=== PATIENT | female | born 1960 | race Caucasian/White ===

== ENCOUNTER 2024-07-22 03:42 | Inpatient (IN) | payer OTHER, SELFPAY ==
[2024-07-22] VITALS (44 sets, daily range): BP systolic 105–132; BP diastolic 49–79; PULSE 93–140; RESP 16–28; TEMP 37.2–39.2; O2SAT 80–96; BMI 32.5
--- NOTE | 2024-07-22 04:00 | CRLHL7_ITS ---
For Patients: As a result of the Century Cures Act, medical imaging exams and procedure reports are released immediately into your electronic medical record. You may view this report before your referring provider. If you have questions, please contact your health care provider. INDICATION: Cough COMPARISON: October 03, 2009 TECHNIQUE: PA and lateral views of the chest were acquired FINDINGS: TUBES AND LINES: None. HEART AND MEDIASTINUM: The heart size is normal. The mediastinal contour appears normal for patient age. LUNGS AND PLEURAL SPACES: The lungs appear normal.The pleural spaces are unremarkable. OSSEOUS STRUCTURES: Age-appropriate appearance. No acute focal finding. IMPRESSION: No evidence of active pulmonary disease. Dictated by Sivakumar Palma MD @ 07/22/2024 4:46:32 AM (Electronically Signed)
--- NOTE | 2024-07-22 04:02 | ED.FEVER ---
HPI - Fever General Date Seen: 07/22/24 Chief Complaint: Fever Stated Complaint: chest congestion/fever Time Seen by Provider: 07/22/24 03:52 Source: patient and family Mode of arrival: ambulatory Limitations: no limitations History of Present Illness HPI Narrative: Patient is a 63-year-old female presents here with her significant other with a history of a fever, aches, mild sore throat and a cough for the last 36 hours. She is taking Tylenol, took 1 g at approximately midnight. Slight headache associated with this but no neck stiffness, she also vomited once yesterday, and does feel nauseous. She did not get the flu shot this year. Her is not sick, denies any diarrhea, abdominal pain dysuria frequency, she has not have a productive cough. History of previous bronchitis, history of depression. MD elicited complaint: fever Context: sick contacts Exacerbating factors: at night Relieving factors: acetaminophen Associated symptoms: chills, rigors, myalgias, headache, nasal congestion, nausea and night sweats Treatments prior to arrival fever: acetaminophen Related Data Home Medications ?Medication ?Instructions ?Recorded ?Confirmed sertraline 50 mg tablet 50 mg PO DAILY 07/04/23 07/08/23 Previous Rx's ?Medication ?Instructions ?Recorded benzonatate 200 mg capsule 200 mg PO BID-TID PRN cough #30 07/04/23 caps azithromycin 250 mg tablet See Rx Instructions PO .COMPLEX #6 07/08/23 tabs oseltamivir 75 mg capsule (Tamiflu) 75 mg PO BID 5 days #10 caps 07/22/24 Allergies Allergy/AdvReac Type Severity Reaction Status Date / Time Unable to Assess Allergy Verified 07/08/23 09:01 Review of Systems Status of ROS Reports: 10 or more systems reviewed and unremarkable except as noted in History and below Exam Narrative Exam Narrative: On examination in room 5, she is alert oriented x3 with a GCS of 15/15, pupils equal round reactive to light there is no scleral icterus redness, TMs are normal she has no nystagmus cranial nerves 3-12 are normal, his throat is slightly reddened. But no tonsillar enlargement or asymmetry is noted, there is no lymphadenopathy anterior posterior chains her neck is supple, and no meningismus is elicited, chest is good air entry bilaterally, she does cough when she takes a deep breath in but I do not hear any crackles, heart sounds are normal no clicks murmurs or gallops her abdomen is soft no organomegaly, she there is no guarding, skin reveals no petechiae rashes she moves all extremities independently and well, is in neurologically intact. She is febrile here at 1:02 a.m. 0.5 with a pulse rate of 140, s Const Vital Signs, click to edit/add: Vital Signs - 24 hr 07/22/24 03:47 Temperature 102.5 F H Pulse Rate [Left Pulse Oximeter] 140 H Respiratory Rate 20 Blood Pressure [Right Upper Arm] 132/79 Pulse Oximetry 93 Oxygen Delivery Method Room Air Documenting provider has reviewed patient's vital signs: yes Course Reevaluation(s) Time of Reevaluation #1: 05:22 Reevaluation #1: Patient is feeling better, not great but better. I went over her laboratory tests she is positive for influenza a, her chest x-ray was negative. I think at the present time we can send her home, with use of the Tamiflu and rest. Note for work given Vital Signs Vital signs: Initial Vital Signs Temperature 102.5 F H 07/22/24 03:47 Temperature Source Temporal Artery Scan 07/22/24 03:47 Pulse Rate 140 H 07/22/24 03:47 Pulse Rhythm Regular 07/22/24 03:47 Respiratory Rate 20 07/22/24 03:47 Blood Pressure 132/79 07/22/24 03:47 Blood Pressure Mean 96 07/22/24 03:47 Blood Pressure Position Sitting 07/22/24 03:47 Pulse Oximetry 93 07/22/24 03:47 Oxygen Delivery Method Room Air 07/22/24 03:47 Vital Signs Temperature 102.5 F H 07/22/24 03:47 Pulse Rate 140 H 07/22/24 03:47 Respiratory Rate 20 07/22/24 03:47 Blood Pressure 132/79 07/22/24 03:47 Pulse Oximetry 93 07/22/24 03:47 Oxygen Delivery Method Room Air 07/22/24 03:47 Temperature 102.5 F H 07/22/24 03:47 Pulse Rate 140 H 07/22/24 03:47 Respiratory Rate 20 07/22/24 03:47 Blood Pressure 132/79 07/22/24 03:47 Pulse Oximetry 93 07/22/24 03:47 Oxygen Delivery Method Room Air 07/22/24 03:47 Medications Administered Medications: Discontinued Medications Generic Name Dose Route Start Last Admin Trade Name Freq PRN Reason Stop Dose Admin Sodium Chloride 1,000 mls @ 1,000 mls/hr 07/22/24 04:00 07/22/24 04:14 0.9 % Sodium Chloride 1000 Ml IV 07/22/24 04:59 1,000 mls/hr .Q1H JOSIANE Administration Ketorolac Tromethamine 30 mg 07/22/24 04:00 07/22/24 04:13 Ketorolac 30 Mg/Ml Inj IVP 07/22/24 04:01 30 mg ONCE ONE Administration Ondansetron HCl 4 mg 07/22/24 04:00 07/22/24 04:13 Ondansetron 2 Mg/Ml Inj IVP 07/22/24 04:01 4 mg ONCE ONE Administration MDM - Fever MDM Narrative Medical decision making narrative: Life-threatening differential diagnosis is include meningitis, encephalitis, pneumonia, intra-abdominal infection, bacteremia, other differential diagnosis include but are not limited to viral upper respiratory tract infection, strep, urinary tract infection, skin infection, osteomyelitis, influenza, fungal infections, diskitis, epidural abscess, or fever of unknown origin. I suspect that this is influenza but given her tachycardia, I think it would be reasonable to do do a more thorough workup, such as laboratory work IV fluids, chest x-ray. Differential Diagnosis Differential diagnosis: Likely cellulitis, fever of unknown origin, gastroenteritis, community acquired pneumonia, pyelonephritis, viral infection, sepsis and influenza Medical Records Attestation: I reviewed the patient's medical records. Lab Data Attestation: I reviewed the patient's lab results. Labs: Lab Results 07/22/24 07/22/24 Range/Units 03:51 04:15 WBC 5.05 (4.50-11.00) K/uL RBC 4.68 (4.00-5.20) m/uL Hgb 13.6 (12.0-16.0) gm/dL Hct 42.0 (33.0-51.0) % MCV 90 (80-100) fL MCH 29 (26-34) pg MCHC 32 (32-36) gm/dL RDW Coeff of Leobardo 13.7 (11.5-15.5) % Plt Count 160 (140-440) K/uL Neut % (Auto) 78.2 H (42.0-72.0) % Lymph % (Auto) 10.9 L (20-44) % [place] % (Auto) 8.7 (0.0-11.0) % Eos % (Auto) 0.8 (0.0-7.0) % Baso % (Auto) 0.6 (0.0-3.0) % Neut # (Auto) 3.90 (1.7-7.0) K/uL Lymph # (Auto) 0.60 L (0.90-2.90) K/uL [place] # (Auto) 0.40 (0.00-0.90) K/UL Eos # (Auto) 0.04 (0.00-0.50) K/uL Baso # (Auto) 0.03 (0.00-0.30) K/uL Abs Immat Gran (auto) 0.04 (0.00-0.30) K/uL Imm/Tot Granulo (auto) 0.8 % Sodium 135 (135-149) mmol/L Potassium 3.8 (3.6-5.1) mmol/L Chloride 104 (96-114) mmol/L Carbon Dioxide 24 (20-32) mmol/L Anion Gap 7 (7-15) mEq/L BUN 14 (7-30) mg/dL Creatinine 0.7 (0.5-1.5) mg/dL Estimated Creat Clear 51.81 Estimated GFR 97 ml/min Glucose 131 H (60-115) mg/dL Lactate 1.5 (0.5-1.9) mmol/L Calcium 9.0 (8.4-10.6) mg/dL C-Reactive Protein 1.0 (0.5-1.0) mg/dL Procalcitonin 0.07 (<0.50) ng/mL SARS-CoV-2 (PCR) Negative SARS-CoV-2 Cancelled (Negative) Influenza Type A (PCR) POSITIVE PCR FLU A A Cancelled (Negative) Influenza Type B (PCR) Negative PCR FLU B Cancelled (Negative) RSV (PCR) Negative PCR RSV Cancelled (Negative) Imaging Data Chest x-ray: Attestation: I have reviewed the pertinent imaging results. My impression: Negative acute Radiologist's impression: [address] [address] Diagnostic Imaging Report Patient: Honey Bolaños MR#: [id number] : 1960 Acct:[id number] Loc: ED Service Date: 07/22/[address]: Ordering Physician: Stevenson Tracy M.D. Date of Service: 07/22/24 Procedure(s): XR chest 2V Accession Number(s): [id number] cc: Whitley Marcelino M.D.; Stevenson Tracy M.D.~ For Patients: As a result of the Cures Act, medical imaging exams and procedure reports are released immediately into your electronic medical record. You may view this report before your referring provider. If you have questions, please contact your health care provider. INDICATION: Cough COMPARISON: October 03, 2009 TECHNIQUE: PA and lateral views of the chest were acquired FINDINGS: TUBES AND LINES: None. HEART AND MEDIASTINUM: The heart size is normal. The mediastinal contour appears normal for patient age. LUNGS AND PLEURAL SPACES: The lungs appear normal.The pleural spaces are unremarkable. OSSEOUS STRUCTURES: Age-appropriate appearance. No acute focal finding. IMPRESSION: No evidence of active pulmonary disease. Dictated by Sivakumar Palma MD @ 07/22/2024 4:46:32 AM (Electronically Signed) Discharge Plan Discharge Clinical Impression: Influenza Patient Disposition: Home w/ Parent or Adult Condition: Improved Instructions: Influenza (DC) Additional Instructions: Home rest fluid, I did prescribe Tamiflu for you. See how it goes you should still also take acetaminophen 1 g p.o. t.i.d.. You can supplement this with ibuprofen but I would start with a acetaminophen 1st. Your very contagious, make sure you warn everyone about this. People run to problems with influenza if they are doing okay then they take a turn for the worse and they usually have a secondary infection. Prescription via instymeds Activity Level: Light activity Discharge Diet: Regular Prescriptions: New oseltamivir [Tamiflu] 75 mg capsule 75 mg PO BID 5 Days Qty: 10 0RF No Action sertraline 50 mg tablet 50 mg PO DAILY benzonatate 200 mg capsule 200 mg PO BID-TID PRN (Reason: cough) Qty: 30 0RF azithromycin 250 mg tablet See Rx Instructions PO .COMPLEX Qty: 6 0RF Rx Instructions: For 250 mg dose pack: take 500 mg today (day 1), then 250 mg for 4 days (days 2-5) PO Follow Up/Referrals: Whitley Marcelino MD [Primary Care Provider] - Stand Alone Forms: [employer] Info Instructions
[2024-07-22] MEDS: KETOROLAC 30 MG/ML inj IVP (04:13)
[2024-07-22] MEDS: ONDANSETRON 2 MG/ML inj 4 MG IVP (04:13)
[2024-07-22] MEDS: 0.9 % SODIUM CHLORIDE 1000 ml 1,000 ML IV ×2 (04:14→05:41)
[2024-07-22 04:25] LABS: Lactate* 1.5 mmol/L (0.5-1.9)
[2024-07-22 04:27] LABS: Basophils Absolute Auto 0.03 K/uL (0.00-0.30); Basophils Percent Auto 0.6 % (0.0-3.0); Eosinophils Absolute Auto 0.04 K/uL (0.00-0.50); Eosinophils Percent Auto 0.8 % (0.0-7.0); Hemoglobin* 13.6 gm/dL (12.0-16.0); Immature Granulocytes Abs Auto 0.04 K/uL (0.00-0.30); Immature Granulocytes Pct Auto 0.8 %; Lymphocytes Percent Auto 10.9 % (20-44); Mean Corpuscular HGB Conc 32 gm/dL (32-36); Mean Corpuscular Hemoglobin 29 pg (26-34); Mean Corpuscular Volume 90 fL (80-100); Monocytes Percent Auto 8.7 % (0.0-11.0); Neutrophils Percent Auto 78.2 % (42.0-72.0); Platelet Count* 160 K/uL (140-440); RDW Coefficient of Variation % 13.7 % (11.5-15.5); Red Blood Count 4.68 m/uL (4.00-5.20); White Blood Count* 5.05 K/uL (4.50-11.00)
[2024-07-22 04:30] LABS: Slide Review Reflex No
[2024-07-22 04:33] LABS: PCR FLU A POSITIVE PCR FLU A (Negative); PCR FLU B Negative PCR FLU B (Negative); PCR RSV Negative PCR RSV (Negative); SARS PCR* Negative SARS-CoV-2 (Negative)
[2024-07-22 04:40] LABS: Chloride* 104 mmol/L (96-114)
[2024-07-22 04:41] LABS: Potassium* 3.8 mmol/L (3.6-5.1); Sodium* 135 mmol/L (135-149)
[2024-07-22 04:43] LABS: Creatinine* 0.7 mg/dL (0.5-1.5); Est. Creatinine Clearance* 51.81; Estimated Glomerular Filt Rate 97 ml/min
[2024-07-22 04:44] LABS: Anion Gap 7 mEq/L (7-15); Blood Urea Nitrogen* 14 mg/dL (7-30); Carbon Dioxide* 24 mmol/L (20-32); Glucose* 131 mg/dL (60-115)
[2024-07-22 05:01] LABS: Procalcitonin* 0.07 ng/mL (<0.50)
[2024-07-22] MEDS: OSELTAMIVIR PHOSPHATE 75 MG CAPSULE PO ×2 (05:40→22:00)
[2024-07-22] MEDS: ACETAMINOPHEN 500 MG TABLET 1000 MG PO (05:40)
--- NOTE | 2024-07-22 05:43 | ED.NURSE ---
O2 applied to pt, 2 LPM via NC
--- NOTE | 2024-07-22 07:26 | ED.NURSE ---
pt ambulated, O2 sats dropped to 85%. At rest on room air, sats increased to 89%. Pt states the walking made her short of breath. Pt placed back on O2, NC at 2 lpm, sats increased to 93%.
[2024-07-22] MEDS: ACETAMINOPHEN 325 MG TABLET 650 MG PO (14:22)
[2024-07-22] MEDS: IBUPROFEN 200 MG TABLET 600 MG PO (18:41)
--- NOTE | 2024-07-22 20:22 | P.IMHP_ITS ---
Hospitalist- H&P: HPI History of Present Illness Date Seen: 07/22/24 Chief complaint: chest congestion/fever Narrative: ADMISSION HISTORY AND PHYSICAL - HOSPITALIST Chief Complaint: Feeling ill, febrile HPI: This is a 63-year-old WF who is otherwise healthy who was in her usual state of good health until about 2 days ago. She started having myalgias, low-grade fevers, headache, sore throat. Her symptoms progressed and in the hours prior to arrival in the ED she spiked a temp up to 102 and felt short of breath. She has no history of pulmonary disease. No sick contacts. She did not have the flu shot this year. ER screen her for influenza and she is positive for influenza A and hypoxic. She has been requiring up to 2 L per nasal cannula oxygen to keep her sats greater than 90%. She has been febrile here in the ED up to 102.4. She is tachypneic and tachycardic with any activity. ER COURSE: She has been in the ER most of the day awaiting bed placement on our floor. She has received Tylenol, ibuprofen, Tamiflu and a fluid bolus. Her chest x-ray was normal. CODE STATUS: FULL CODE EMERGENCY CONTACT PLAN: [place], Marco Rel To Pat Son I've updated the PFSH, medications and allergies in the [facility] tabs. INVESTIGATIONS: LABS/MICRO/ECG/IMAGING Consistently febrile since arrival. 102.5 is the T-max Blood pressure stable 121/60 Mildly tachycardic 104-93 Respiratory rate 16-18 but when febrile tachypneic up to 28 Pulse ox is mid 90s on 2 L CBC is unremarkable. White blood cell count 5.05. Hemoglobin 13.6. Platelet count 160. Chemistries are unremarkable. Glucose is 131. Lactate was normal this morning when she arrived. CRP and procalcitonin are not elevated. She is positive for influenza type A. Negative for COVID RSV. Chest x-ray, two view, clear. One blood culture pending REVIEW OF SYSTEMS: 12-point ROS completed with patient and negative unless otherwise stated in HPI or below. PHYSICAL EXAM: CONSTITUTIONAL: Conversive, good historian. A/O. Knows setting and context. Looks flushed and ill. GENERAL: Well-developed and above ideal body weight, in mild respiratory distress. VITAL SIGNS: see record. HEENT: Sclerae are anicteric. No petechiae. CARDIAC: rhythm is regular. There is no S3 or rub. No harsh murmurs. Extremities show trace edema with symmetrical pulses. PULM: good air entry with no wheeze. Induces cough with deep breath. NEURO: Speech is fluent. A brief neurologic exam is negative. SKIN: No rashes, petechiae, concerning changes PSYCHIATRIC: Euthymic. ADMIT TO MEDSURG: FLOOR CARE DVT: Lovenox GI: PO intake Time spent: Today I spent 75 minutes seeing the patient, discussing the patient with ER staff, reviewing Expanse and EPIC notes/diagnostics, discussing the care plan with our care time that includes social work, PT/OT, pharmacy, RT, nursing home and documenting my impressions and plan in the medical record. MEDICAL NECESSITY FOR HOSPITALIZATION Anticipated midnights in the hospital: 2 Admitting diagnosis: Influenza A Risk of morbidity and mortality: high Acuity is characterized as high and reflected in: The patient has continued to be hypoxic and febrile. She is requiring oxygen to keep her sats greater than 90%. She has tachycardic and tachypneic. Given her severe presentation and advanced age she will be admitted to inpatient services. This patient will require hospital services as outlined in the assessment and plan in order to stabilize and be safely discharged to a lower level of care. Because of the risk and acuity as described above, this patient cannot be managed at a lower level of care. LENGTH OF STAY: 2 IP ? Anticipated LOS>2 midnights due to acuity of clinical presentation requiring inpatient level of care [facility] Medical History (Updated 07/22/24 @ 20:50 by Neha Mansfield MD) Mild anxiety ?F41.9 - Anxiety disorder, unspecified (ICD-10) Surgical History (Updated 07/22/24 @ 20:49 by Neha Mansfield MD) History of vaginal hysterectomy ?Z90.710 - Acquired absence of both cervix and uterus (ICD-10) Hx of tonsillectomy ?Z90.89 - Acquired absence of other organs (ICD-10) History of abdominoplasty ?Z98.890 - Other specified postprocedural states (ICD-10) Social History Smoking Status: Never smoker How often do you have a drink containing alcohol: never How often do you have six or more drinks on one occasion: Never AUDIT-C Alcohol total score: 0 Non-prescribed substance use: denies use service: No Meds Home Medications and Allergies Home Medications ?Medication ?Instructions ?Recorded ?Confirmed ?Type sertraline 50 mg tablet 50 mg PO DAILY 07/04/23 07/22/24 History Allergies Allergy/AdvReac Type Severity Reaction Status Date / Time Unable to Assess Allergy Verified 07/08/23 09:01 Exam Const: Vital Signs, click to edit/add: Vital Signs - 24 hr 07/22/24 03:47 07/22/24 04:00 07/22/24 05:25 Temperature 102.5 F H 102.5 F H Pulse Rate Pulse Rate [Left P ulse Oximeter] 140 H 126 H Respiratory Rate 20 18 Blood Pressure Blood Pressure [Ri ght Upper Arm] 132/79 121/60 Pulse Oximetry 93 93 90 Oxygen Delivery Me thod Room Air Room Air Oxygen Flow Rate 07/22/24 05:40 07/22/24 05:42 07/22/24 05:49 Temperature 102.5 F H Pulse Rate Pulse Rate [Left P ulse Oximeter] Respiratory Rate 18 Blood Pressure Blood Pressure [Ri ght Upper Arm] Pulse Oximetry 95 93 Oxygen Delivery Me thod Nasal Cannula Nasal Cannula Oxygen Flow Rate 2 2 07/22/24 07:13 07/22/24 07:14 07/22/24 12:40 Temperature 99.3 F 99.3 F Pulse Rate 102 H Pulse Rate [Left P ulse Oximeter] 118 H Respiratory Rate 16 Blood Pressure Blood Pressure [Ri ght Upper Arm] 115/55 L Pulse Oximetry 93 95 Oxygen Delivery Me thod Nasal Cannula Oxygen Flow Rate 2 07/22/24 12:45 07/22/24 13:00 07/22/24 13:15 Temperature Pulse Rate 106 H 104 H 100 Pulse Rate [Left P ulse Oximeter] Respiratory Rate Blood Pressure Blood Pressure [Ri ght Upper Arm] Pulse Oximetry 95 94 94 Oxygen Delivery Me thod Oxygen Flow Rate 07/22/24 13:30 07/22/24 13:45 07/22/24 14:04 Temperature Pulse Rate 100 99 134 H Pulse Rate [Left P ulse Oximeter] Respiratory Rate Blood Pressure Blood Pressure [Ri ght Upper Arm] Pulse Oximetry 94 93 80 L Oxygen Delivery Me thod Oxygen Flow Rate 07/22/24 14:15 07/22/24 14:22 07/22/24 14:30 Temperature 101 F H Pulse Rate 104 H 108 H Pulse Rate [Left P ulse Oximeter] Respiratory Rate Blood Pressure Blood Pressure [Ri ght Upper Arm] Pulse Oximetry 89 85 L Oxygen Delivery Me thod Oxygen Flow Rate 07/22/24 14:45 07/22/24 15:00 07/22/24 15:15 Temperature Pulse Rate 103 H 100 99 Pulse Rate [Left P ulse Oximeter] Respiratory Rate Blood Pressure Blood Pressure [Ri ght Upper Arm] Pulse Oximetry 90 93 92 Oxygen Delivery Me thod Oxygen Flow Rate 07/22/24 15:30 07/22/24 15:31 07/22/24 15:45 Temperature Pulse Rate 102 H 100 95 Pulse Rate [Left P ulse Oximeter] Respiratory Rate Blood Pressure 116/61 Blood Pressure [Ri ght Upper Arm] Pulse Oximetry 93 92 91 Oxygen Delivery Me thod Oxygen Flow Rate 07/22/24 16:00 07/22/24 16:15 07/22/24 16:30 Temperature Pulse Rate 107 H 96 93 Pulse Rate [Left P ulse Oximeter] Respiratory Rate Blood Pressure Blood Pressure [Ri ght Upper Arm] Pulse Oximetry 92 92 92 Oxygen Delivery Me thod Oxygen Flow Rate 07/22/24 16:45 07/22/24 17:00 07/22/24 17:15 Temperature Pulse Rate 93 93 101 H Pulse Rate [Left P ulse Oximeter] Respiratory Rate Blood Pressure Blood Pressure [Ri ght Upper Arm] Pulse Oximetry 91 92 93 Oxygen Delivery Me thod Oxygen Flow Rate 07/22/24 17:30 07/22/24 17:50 07/22/24 18:00 Temperature Pulse Rate 100 103 H 104 H Pulse Rate [Left P ulse Oximeter] Respiratory Rate Blood Pressure Blood Pressure [Ri ght Upper Arm] Pulse Oximetry 92 94 95 Oxygen Delivery Me thod Oxygen Flow Rate 07/22/24 18:15 07/22/24 18:30 07/22/24 18:37 Temperature Pulse Rate 99 94 94 Pulse Rate [Left P ulse Oximeter] Respiratory Rate 28 H Blood Pressure 121/60 Blood Pressure [Ri ght Upper Arm] Pulse Oximetry 95 95 96 Oxygen Delivery Me thod Nasal Cannula Oxygen Flow Rate 2 07/22/24 18:41 07/22/24 18:45 07/22/24 19:00 Temperature 102.4 F H Pulse Rate 97 98 Pulse Rate [Left P ulse Oximeter] Respiratory Rate Blood Pressure Blood Pressure [Ri ght Upper Arm] Pulse Oximetry 96 95 Oxygen Delivery Me thod Oxygen Flow Rate 07/22/24 19:15 07/22/24 19:30 Temperature Pulse Rate 93 93 Pulse Rate [Left P ulse Oximeter] Respiratory Rate Blood Pressure Blood Pressure [Ri ght Upper Arm] Pulse Oximetry 92 91 Oxygen Delivery Me thod Oxygen Flow Rate Hospitalist - H&P: Result Labs Labs: Short CBC 07/22/24 Range/Units 04:15 WBC 5.05 (4.50-11.00) K/uL Hgb 13.6 (12.0-16.0) gm/dL Hct 42.0 (33.0-51.0) % Plt Count 160 (140-440) K/uL BMP 07/22/24 04:15 Sodium 135 Potassium 3.8 Chloride 104 Carbon Dioxide 24 BUN 14 Creatinine 0.7 Glucose 131 H Calcium 9.0 Assessment and Plan Assessment and plan (1) Hypoxic respiratory failure: Problem comment: -continue nasal cannula oxygen support. -encouraged vibratory peep and incentive spirometry Q 30 minutes while awake -consider repeating chest x-ray, two view, if continues to be hypoxic on 07/23 Status: Acute (2) Influenza A with respiratory manifestations: Problem comment: -Tamiflu 75 mg p.o. b.i.d. -fever management -watch fluids and electrolytes Status: Acute (3) Mild anxiety: Problem comment: -continue Zoloft Status: Acute
[2024-07-22] MEDS: SODIUM CHLORIDE 0.9 % (FLUSH) 10 ML SYRINGE 5 ML IVF (21:59)
[2024-07-22] MEDS: ENOXAPARIN 40 MG/0.4 ML INJ SUBCUT (21:59)
[2024-07-23] MEDS: SODIUM CHLORIDE 0.9 % (FLUSH) 10 ML SYRINGE 5 ML IVF ×2 (00:05→09:29)
[2024-07-23] MEDS: KETOROLAC 15 MG/ML inj IVP (00:05)
[2024-07-23 00:45] VITALS: PULSE 68
[2024-07-23 03:42] VITALS: BP 98/52; PULSE 68; RESP 16; TEMP 36.8; O2SAT 93
[2024-07-23 07:00] VITALS: BP 114/60; PULSE 100; PULSE 82; RESP 14; TEMP 37.1; O2SAT 93
[2024-07-23 07:07] LABS: HCO3 VBG 28 mmol/L (21-28); Lactate* 0.6 mmol/L (0.5-1.9); PCO2 VBG 53 mmHG (40-50); PO2 VBG < 30.1 mmHG (25-47); pH VBG 7.333 (7.32-7.43)
[2024-07-23 07:17] LABS: Hematocrit 36.7 % (33.0-51.0); Hemoglobin* 11.6 gm/dL (12.0-16.0); Mean Corpuscular HGB Conc 32 gm/dL (32-36); Mean Corpuscular Hemoglobin 29 pg (26-34); Mean Corpuscular Volume 91 fL (80-100); Platelet Count* 134 K/uL (140-440); Red Blood Count 4.02 m/uL (4.00-5.20)
[2024-07-23 07:19] LABS: Slide Review Reflex No
[2024-07-23 07:41] LABS: Albumin* 3.3 g/dL (3.3-5.0); Chloride* 105 mmol/L (96-114)
[2024-07-23 07:42] LABS: Potassium* 3.5 mmol/L (3.6-5.1); Sodium* 136 mmol/L (135-149)
[2024-07-23 07:44] LABS: Bilirubin Total* 0.3 mg/dL (0.1-1.5); Creatinine* 0.6 mg/dL (0.5-1.5); Est. Creatinine Clearance* 51.81; Estimated Glomerular Filt Rate 101 ml/min
[2024-07-23 07:45] LABS: Alanine Aminotransferase* 105 U/L (4-35); Alkaline Phosphatase* 46 U/L (40-150); Anion Gap 4 mEq/L (7-15); Aspartate Amino Transferase* 90 U/L (12-35); Blood Urea Nitrogen* 15 mg/dL (7-30); Calcium* 8.1 mg/dL (8.4-10.6); Carbon Dioxide* 27 mmol/L (20-32); Glucose* 98 mg/dL (60-115); Total Protein* 5.8 g/dL (6.0-8.3)
[2024-07-23 07:48] LABS: C Reactive Protein* 7.9 mg/dL (0.5-1.0)
--- NOTE | 2024-07-23 07:59 | PC.NURSE ---
Pt alert and oriented x3. Afebrile. Pt was weaned down from 1L to room air, maintaining stats of 90-93% and higher Pt reports 3-8/10 generalized/headache pain, managed with PRN medications. Pt is up SBA, voiding and tolerating a regular diet.
[2024-07-23] MEDS: SERTRALINE 50 MG TABLET PO (09:28)
[2024-07-23] MEDS: OSELTAMIVIR PHOSPHATE 75 MG CAPSULE PO (09:28)
[2024-07-23 11:00] VITALS: BP 121/50; PULSE 94; RESP 14; TEMP 38.1; O2SAT 88
[2024-07-23 11:40] VITALS: TEMP 38.1
[2024-07-23] MEDS: ACETAMINOPHEN 500 MG TABLET 1000 MG PO (11:40)
--- NOTE | 2024-07-23 12:20 | PM.DS1 ---
DS: Providers Provider Date Seen: 07/23/24 Date of admission: 07/22/24 20:26 Primary care physician: Whitley Marcelino MD Admitting Clinician: Neha Mansfield MD Consults: 07/22/24 20:26 Consult to Occupational Therapy [CONS] Routine Comment: Reason(s) for OT Consult:: Evaluate and Treat Any Restrictions?:: No Restrictions Consult to Physical Therapy [CONS] Routine Comment: Reason(s) for PT Consult:: Evaluate and Treat Any Restrictions?:: No Restrictions Consult to Respiratory Therapy [CONS] Routine Comment: Reason(s) for RT Consult:: Consult Consult to [employer] [CONS] Routine Comment: Reason for Consult:: Social Service Consult Attending Physician on discharge: Honey Vargas [facility] Date of Discharge: 07/23/24 DS: Diagnosis Discharge Diagnosis (1) Hypoxic respiratory failure: Status: Acute Problem details: -continue nasal cannula oxygen support. -encouraged vibratory peep and incentive spirometry Q 30 minutes while awake -consider repeating chest x-ray, two view, if continues to be hypoxic on 07/23 No hypoxia at rest. Mild, drops to mid 80s with ambulation, quick recovery with rest. Able to ambulate >200'. Plans to rest with decreased activity at home. (2) Influenza A with respiratory manifestations: Status: Acute Problem details: -Tamiflu 75 mg p.o. b.i.d. -fever management -watch fluids and electrolytes Anxious to discharge home today. Rest, fluids with electrolytes. Ibuprofen/tylenol. Continue Tamiflu. (3) Mild anxiety: Status: Acute Problem details: -continue Zoloft DS: Summary Hospital Course Hospital Course: Course of care and details as noted above. Patient would like to discharge to home today, understanding of the limitations with activity/ambulation with oxygen needs. Physical therapy assessed, discussed plan of care. Remainder of chronic medical comorbidities were monitored and managed with home medications. Status at Discharge Functional status at discharge: independent ambulation Overall status at discharge: patient is progressing back to baseline Time Spent with Patient Time attestation: Total time spent providing and/or coordinating discharge services: Time spent: Greater than 30 minutes Exam Narrative: Exam Narrative: PHYSICAL EXAM General: Pleasant, conversant, NAD Cardiovascular: RRR Pulmonary: No dyspnea on room air at rest Neurological: Alert, answering questions appropriately Skin: Warm, dry. Const: Vital Signs, click to edit/add: Vital Signs - 24 hr 07/22/24 12:40 07/22/24 12:45 07/22/24 13:00 Temperature Pulse Rate 102 H 106 H 104 H Pulse Rate [Pulse Oximeter] Respiratory Rate Blood Pressure Blood Pressure [Ri ght Arm] Pulse Oximetry 95 95 94 Oxygen Delivery Me thod Oxygen Flow Rate 07/22/24 13:15 07/22/24 13:30 07/22/24 13:45 Temperature Pulse Rate 100 100 99 Pulse Rate [Pulse Oximeter] Respiratory Rate Blood Pressure Blood Pressure [Ri ght Arm] Pulse Oximetry 94 94 93 Oxygen Delivery Me thod Oxygen Flow Rate 07/22/24 14:04 07/22/24 14:15 07/22/24 14:22 Temperature 101 F H Pulse Rate 134 H 104 H Pulse Rate [Pulse Oximeter] Respiratory Rate Blood Pressure Blood Pressure [Ri ght Arm] Pulse Oximetry 80 L 89 Oxygen Delivery Me thod Oxygen Flow Rate 07/22/24 14:30 07/22/24 14:45 07/22/24 15:00 Temperature Pulse Rate 108 H 103 H 100 Pulse Rate [Pulse Oximeter] Respiratory Rate Blood Pressure Blood Pressure [Ri ght Arm] Pulse Oximetry 85 L 90 93 Oxygen Delivery Me thod Oxygen Flow Rate 07/22/24 15:15 07/22/24 15:30 07/22/24 15:31 Temperature Pulse Rate 99 102 H 100 Pulse Rate [Pulse Oximeter] Respiratory Rate Blood Pressure 116/61 Blood Pressure [Ri ght Arm] Pulse Oximetry 92 93 92 Oxygen Delivery Me thod Oxygen Flow Rate 07/22/24 15:45 07/22/24 16:00 07/22/24 16:15 Temperature Pulse Rate 95 107 H 96 Pulse Rate [Pulse Oximeter] Respiratory Rate Blood Pressure Blood Pressure [Ri ght Arm] Pulse Oximetry 91 92 92 Oxygen Delivery Me thod Oxygen Flow Rate 07/22/24 16:30 07/22/24 16:45 07/22/24 17:00 Temperature Pulse Rate 93 93 93 Pulse Rate [Pulse Oximeter] Respiratory Rate Blood Pressure Blood Pressure [Ri ght Arm] Pulse Oximetry 92 91 92 Oxygen Delivery Me thod Oxygen Flow Rate 07/22/24 17:15 07/22/24 17:30 07/22/24 17:50 Temperature Pulse Rate 101 H 100 103 H Pulse Rate [Pulse Oximeter] Respiratory Rate Blood Pressure Blood Pressure [Ri ght Arm] Pulse Oximetry 93 92 94 Oxygen Delivery Me thod Oxygen Flow Rate 07/22/24 18:00 07/22/24 18:15 07/22/24 18:30 Temperature Pulse Rate 104 H 99 94 Pulse Rate [Pulse Oximeter] Respiratory Rate Blood Pressure Blood Pressure [Ri ght Arm] Pulse Oximetry 95 95 95 Oxygen Delivery Me thod Oxygen Flow Rate 07/22/24 18:37 07/22/24 18:41 07/22/24 18:45 Temperature 102.4 F H Pulse Rate 94 97 Pulse Rate [Pulse Oximeter] Respiratory Rate 28 H Blood Pressure 121/60 Blood Pressure [Ri ght Arm] Pulse Oximetry 96 96 Oxygen Delivery Me thod Nasal Cannula Oxygen Flow Rate 2 07/22/24 19:00 07/22/24 19:15 07/22/24 19:30 Temperature Pulse Rate 98 93 93 Pulse Rate [Pulse Oximeter] Respiratory Rate Blood Pressure Blood Pressure [Ri ght Arm] Pulse Oximetry 95 92 91 Oxygen Delivery Me thod Oxygen Flow Rate 07/22/24 20:11 07/22/24 20:11 07/22/24 20:26 Temperature 98.9 F Pulse Rate Pulse Rate [Pulse Oximeter] Respiratory Rate 16 16 16 Blood Pressure Blood Pressure [Ri ght Arm] 114/61 Pulse Oximetry 91 90 90 Oxygen Delivery Me thod Nasal Cannula Room Air Room Air Oxygen Flow Rate 1 1 1 07/22/24 20:26 07/22/24 22:27 07/22/24 22:27 Temperature 99.1 F Pulse Rate Pulse Rate [Pulse Oximeter] Respiratory Rate 16 16 Blood Pressure Blood Pressure [Ri ght Arm] 105/49 L Pulse Oximetry 90 93 Oxygen Delivery Me thod Room Air Oxygen Flow Rate 1 07/23/24 00:45 07/23/24 03:42 07/23/24 07:00 Temperature 98.2 F 98.8 F Pulse Rate 68 Pulse Rate [Pulse Oximeter] 68 82 Respiratory Rate 16 14 Blood Pressure Blood Pressure [Ri ght Arm] 98/52 L 114/60 Pulse Oximetry 93 93 Oxygen Delivery Me thod Nasal Cannula Room Air Oxygen Flow Rate 0.5 07/23/24 07:00 07/23/24 07:00 07/23/24 11:00 Temperature 100.5 F H Pulse Rate 100 Pulse Rate [Pulse Oximeter] 82 94 Respiratory Rate 14 14 Blood Pressure Blood Pressure [Ri ght Arm] 121/50 L Pulse Oximetry 88 Oxygen Delivery Me thod Room Air Oxygen Flow Rate 07/23/24 11:40 Temperature 100.5 F H Pulse Rate Pulse Rate [Pulse Oximeter] Respiratory Rate Blood Pressure Blood Pressure [Ri ght Arm] Pulse Oximetry Oxygen Delivery Me thod Oxygen Flow Rate DS: Data Data Completed and Pending Labs on day of discharge: Labs from last 24 hours 07/23/24 06:20 WBC 3.90 L RBC 4.02 Hgb 11.6 L Hct 36.7 MCV 91 MCH 29 MCHC 32 Plt Count 134 L VBG pH 7.333 VBG pCO2 53 H VBG pO2 < 30.1 VBG HCO3 28 Sodium 136 Potassium 3.5 L Chloride 105 Carbon Dioxide 27 Anion Gap 4 L BUN 15 Creatinine 0.6 Estimated Creat Clear 51.81 Estimated GFR 101 Glucose 98 Lactate 0.6 Calcium 8.1 L Total Bilirubin 0.3 AST 90 H ALT 105 H Alkaline Phosphatase 46 C-Reactive Protein 7.9 H Total Protein 5.8 L Albumin 3.3 Preliminary micro results at discharge 07/22/24 04:15 Blood Culture - Preliminary Blood NO GROWTH AFTER 24 HOURS Imaging Chest x-ray: Attestation: I have reviewed the pertinent imaging results. Radiologist's impression: TUBES AND LINES: None. HEART AND MEDIASTINUM: The heart size is normal. The mediastinal contour appears normal for patient age. LUNGS AND PLEURAL SPACES: The lungs appear normal.The pleural spaces are unremarkable. OSSEOUS STRUCTURES: Age-appropriate appearance. No acute focal finding. IMPRESSION: No evidence of active pulmonary disease. Discharge Plan Discharge Disposition: Home, Self-Care Date of Admission: 07/22/24 20:26 Attending Provider on Discharge: Honey Vargas Primary Care Provider: Whitley Marcelino Condition: Unchanged Anticipated Discharge Date/Time: 07/23/24 12:09 Discharge Medications: New oseltamivir 75 mg Capsule 75 mg PO BID 4 Days Qty: 8 0RF Continued sertraline 50 mg tablet 50 mg PO DAILY Discharge Orders: Discharge Order (Routine); Ordered 07/23/24 Ordered By: Honey Vargas Patient Education: Influenza (DC) Additional Instructions: Home rest fluid, continue Tamiflu. Continue acetaminophen 1 g every 6 hours. You can supplement this with ibuprofen if needed. You're very contagious, make sure you warn everyone about this. Do not return to work this week. Activity Level: Activity as Tolerated Discharge Diet: Regular Follow Up Appointments: Whitley Marcelino MD [Primary Care Provider] - (post hospital follow up as needed if no improvement) Forms: [employer] Info Instructions
--- NOTE | 2024-07-23 12:27 | REH.OT ---
OT order received for IP eval, however Pt discharged prior to session. No further OT need.
--- NOTE | 2024-07-23 13:16 | RESP.RT ---
Consulted to see pt. PT on RA, SPO2 89-92%, she is lying in bed. Pt reports still being weak, however wants to go home. BBS decreased, good aeration in upper lobes. Doing well with aerobika. Set schedule for her to use at home, she agrees. Talked about need to conserve energy, with ADL, and when walking. Encouraged water intake, and having frequent small meals.
--- NOTE | 2024-07-23 15:17 | PC.NURSE ---
DC: Pt alert and oriented, had a fever though otherwise vitally stable. Expiatory wheeze noticed upon lung auscultation, pt stated non productive cough. Tele NSR. Pt moves independently. DC information given to pt and spouse, topics including medications, followup and activity level. Pt DC home with spouse at 1445.
== END 2024-07-23 14:45 | disposition home or self-care (01) | DRG 193 ==
LOC: ED 15:09 → MEDSURG 19:45
PROVIDERS: Family Medicine; Admitting Provider Family Medicine; Emergency Provider Student in an Organized Health Care Education/Training Program; PCP Internal Medicine; Visit Provider Family Medicine
DX: J10.1 Influenza due to other identified influenza virus with other respiratory manifestations (principal); J96.01 Acute respiratory failure with hypoxia; F41.9 Anxiety disorder, unspecified
CPT/HCPCS: 36415; 71046; 80048; 80053; 82803; 83605; 84145; 85025; 85027; 86140; 87040; 87631; 93005; 94761; 97116; 97162; 99284; A9270; J1650; J1885; J2405; J7030